=== PATIENT | male | born 1945 | race Caucasian/White ===

== ENCOUNTER 2018-07-24 12:07 | Inpatient (IN) | payer MEDICARE ==
[~2018-07-24] VITALS: Ht 175.3 cm; Wt 100.0 kg
[2018-07-24 13:25] LABS: HEMATOCRIT 48.4 % (39.0-50.0); HEMOGLOBIN 16.7 g/dl (14.0-18.0); IMMATURE GRANULOCYTES 0.1 % (0.0-5.0); MEAN CELL VOLUME 98.8 fL CALC (80.0-100.0); MEAN CORPUSCULAR HGB 34.1 pG CALC (26.0-32.0); MEAN CORPUSCULAR HGB CONC 34.5 g/L CALC (32.0-36.0); NEUT# 6.16 thou/uL (1.82-7.42); RED BLOOD COUNT 4.9 mill/uL (4.70-6.10); RED CELL DISTRI WIDTH 11.9 % (11.5-15.5)
[2018-07-24 13:44] LABS: ALBUMIN 4.1 g/dL (3.2-5.0); ALKALINE PHOSPHATASE 120 u/l (38-126); ANION GAP 18 (6-22 (CALC)); BUN 14 mg/dL (8-23); BUN/CREATININE RATIO 17 (12-20 (CALC)); CARBON DIOXIDE 25 mmol/l (22-30); CHLORIDE 101 mmol/l (95-108); CREATININE 0.8 mg/dL (0.7-1.3); GFR > 60 ML/MIN (>=60 (CALC)); GFR FOR AFR.AMER. > 60 ML/MIN (>=60 (CALC)); POTASSIUM 3.9 mmol/l (3.5-5.1); SGOT/AST 340 u/l (19-48); SODIUM 140 mmol/l (137-146); TOTAL PROTEIN 6.6 g/dL (6.3-8.2)
[2018-07-24 13:49] LABS: AMYLASE 1926 u/l (30-110)
[2018-07-24 14:04] LABS: LIPASE 36651 u/l (23-300)
[2018-07-24 14:11] LABS: URINE BLOOD DIPSTICK NEGATIVE (NEGATIVE); URINE GLUCOSE - DIPSTICK 100 mg/dL (NEGATIVE); URINE KETONE TRACE mg/dL (NEGATIVE); URINE LEUK ESTERASE NEGATIVE (NEGATIVE); URINE NITRITE - DIPSTICK NEGATIVE (Negative); URINE PROTEIN - DIPSTICK TRACE mg/dL (NEG-TRACE)
[2018-07-24 14:12] LABS: URINE BILIRUBIN - DIPSTICK MODERATE (NEGATIVE); URINE COLOR DK. YELLOW
[2018-07-24 14:14] LABS: BARBITURATES NEGATIVE (NEGATIVE); COCAINE NEGATIVE (NEGATIVE); METHADONE NEGATIVE (NEGATIVE); OXCYCODONE NEGATIVE (NEGATIVE); TETRAHYDROCANNABIONOL NEGATIVE (NEGATIVE); TRICYLIC ANTIDEPRESSANTS NEGATIVE (NEGATIVE)
[2018-07-24] MEDS ORDERED: AMLODIPINE5 MG PO (15:09)
[2018-07-24] MEDS ORDERED: HYDROCHLOROT25 MG PO (15:10)
[2018-07-24] MEDS ORDERED: SIMVASTATIN10 MG PO (15:10)
[2018-07-24] MEDS ORDERED: ASPIRIN81 MG PO (15:11)
[2018-07-24] MEDS ORDERED: CLONAZEPAM0.5 MG PO (15:11)
[2018-07-24] MEDS ORDERED: PANTOPRAZOLE SO40 MG PO (15:11)
[2018-07-24 15:51] VITALS: BP 110/66
[2018-07-24 19:34] VITALS: BP 118/77
[2018-07-25] VITALS: BP 123/77
[2018-07-25 04:11] VITALS: BP 118/75
[2018-07-25 04:22] LABS: HEMATOCRIT 43.5 % (39.0-50.0); HEMOGLOBIN 15.2 g/dl (14.0-18.0); IMMATURE GRANULOCYTES 0.5 % (0.0-5.0); MEAN CELL VOLUME 99.5 fL CALC (80.0-100.0); MEAN CORPUSCULAR HGB 34.8 pG CALC (26.0-32.0); MEAN CORPUSCULAR HGB CONC 34.9 g/L CALC (32.0-36.0); NEUT# 15.03 thou/uL (1.82-7.42); RED BLOOD COUNT 4.37 mill/uL (4.70-6.10); RED CELL DISTRI WIDTH 12.2 % (11.5-15.5)
[2018-07-25 04:42] LABS: ALKALINE PHOSPHATASE 104 u/l (38-126); AMYLASE 878 u/l (30-110); ANION GAP 13 (6-22 (CALC)); BILIRUBIN, TOTAL 4.1 mg/dL (0.0-1.4); BUN 11 mg/dL (8-23); BUN/CREATININE RATIO 16 (12-20 (CALC)); CARBON DIOXIDE 27 mmol/l (22-30); CHLORIDE 104 mmol/l (95-108); CREATININE 0.7 mg/dL (0.7-1.3); GFR > 60 ML/MIN (>=60 (CALC)); GFR FOR AFR.AMER. > 60 ML/MIN (>=60 (CALC)); MAGNESIUM 1.7 mg/dL (1.6-2.3); POTASSIUM 3.7 mmol/l (3.5-5.1); SGOT/AST 214 u/l (19-48); SODIUM 141 mmol/l (137-146); TOTAL PROTEIN 5.5 g/dL (6.3-8.2)
[2018-07-25 04:49] LABS: ALBUMIN 3.2 g/dL (3.2-5.0)
[2018-07-25 05:03] LABS: LIPASE 8873 u/l (23-300)
[2018-07-25 08:00] VITALS: BP 123/65
[2018-07-25 11:04] VITALS: BP 125/73
[2018-07-25 15:27] VITALS: BP 144/80
[2018-07-25 18:56] VITALS: BP 130/74
[2018-07-26] VITALS (7 sets, daily range): BP systolic 133–152; BP diastolic 71–84
[2018-07-26 05:32] LABS: HEMATOCRIT 43.7 % (39.0-50.0); HEMOGLOBIN 15.3 g/dl (14.0-18.0); IMMATURE GRANULOCYTES 0.6 % (0.0-5.0); MEAN CELL VOLUME 98.4 fL CALC (80.0-100.0); MEAN CORPUSCULAR HGB 34.5 pG CALC (26.0-32.0); NEUT# 10.82 thou/uL (1.82-7.42); RED BLOOD COUNT 4.44 mill/uL (4.70-6.10); RED CELL DISTRI WIDTH 12.2 % (11.5-15.5)
[2018-07-26 05:42] LABS: ALBUMIN 3.1 g/dL (3.2-5.0); ALKALINE PHOSPHATASE 111 u/l (38-126); ANION GAP 14 (6-22 (CALC)); BILIRUBIN, TOTAL 2.7 mg/dL (0.0-1.4); BUN 12 mg/dL (8-23); BUN/CREATININE RATIO 20 (12-20 (CALC)); CARBON DIOXIDE 25 mmol/l (22-30); CHLORIDE 101 mmol/l (95-108); CREATININE 0.6 mg/dL (0.7-1.3); GFR > 60 ML/MIN (>=60 (CALC)); GFR FOR AFR.AMER. > 60 ML/MIN (>=60 (CALC)); POTASSIUM 3.2 mmol/l (3.5-5.1); SGOT/AST 77 u/l (19-48); SODIUM 137 mmol/l (137-146); TOTAL PROTEIN 5.5 g/dL (6.3-8.2)
[2018-07-26 05:49] LABS: LIPASE 1959 u/l (23-300)
[2018-07-26 16:21] LABS: URINE BLOOD DIPSTICK TRACE-LYSED (NEGATIVE); URINE COLOR YELLOW; URINE GLUCOSE - DIPSTICK NEGATIVE (NEGATIVE); URINE KETONE >=80 mg/dL (NEGATIVE); URINE LEUK ESTERASE NEGATIVE (Negative); URINE NITRITE - DIPSTICK NEGATIVE (Negative); URINE PROTEIN - DIPSTICK 30 mg/dL (NEG-TRACE); URINE SPECIFIC GRAVITY 1.015
[2018-07-26 16:26] LABS: URINE BILIRUBIN - DIPSTICK SMALL (NEGATIVE); URINE CLARITY CLEAR
[2018-07-26 16:32] LABS: ALBUMIN 3.2 g/dL (3.2-5.0); ALKALINE PHOSPHATASE 145 u/l (38-126); BILIRUBIN, TOTAL 3.6 mg/dL (0.0-1.4); BUN 13 mg/dL (8-23); BUN/CREATININE RATIO 21 (12-20 (CALC)); CARBON DIOXIDE 23 mmol/l (22-30); CHLORIDE 103 mmol/l (95-108); CREATININE 0.6 mg/dL (0.7-1.3); GFR > 60 ML/MIN (>=60 (CALC)); GFR FOR AFR.AMER. > 60 ML/MIN (>=60 (CALC)); SGOT/AST 93 u/l (19-48); SODIUM 135 mmol/l (137-146); TOTAL PROTEIN 5.8 g/dL (6.3-8.2)
[2018-07-26 16:34] LABS: ANION GAP 13 (6-22 (CALC))
[2018-07-26 16:39] LABS: URINE SQUAMOUS EPITHELIAL CELL FEW EPI/hpf (0-FEW)
[2018-07-26 16:43] LABS: HEMATOCRIT 43.8 % (39.0-50.0); HEMOGLOBIN 15.3 g/dl (14.0-18.0); IMMATURE GRANULOCYTES 0.6 % (0.0-5.0); MEAN CELL VOLUME 98.2 fL CALC (80.0-100.0); MEAN CORPUSCULAR HGB 34.3 pG CALC (26.0-32.0); MEAN CORPUSCULAR HGB CONC 34.9 g/L CALC (32.0-36.0); NEUT# 7.17 thou/uL (1.82-7.42); RED BLOOD COUNT 4.46 mill/uL (4.70-6.10); RED CELL DISTRI WIDTH 12.1 % (11.5-15.5)
[2018-07-27 04:05] VITALS: BP 147/89
[2018-07-27 04:43] LABS: HEMATOCRIT 42.9 % (39.0-50.0); HEMOGLOBIN 14.9 g/dl (14.0-18.0); IMMATURE GRANULOCYTES 0.6 % (0.0-5.0); MEAN CELL VOLUME 97.7 fL CALC (80.0-100.0); MEAN CORPUSCULAR HGB 33.9 pG CALC (26.0-32.0); MEAN CORPUSCULAR HGB CONC 34.7 g/L CALC (32.0-36.0); NEUT# 8.22 thou/uL (1.82-7.42); RED BLOOD COUNT 4.39 mill/uL (4.70-6.10); RED CELL DISTRI WIDTH 12.2 % (11.5-15.5)
[2018-07-27 04:59] LABS: ALKALINE PHOSPHATASE 152 u/l (38-126); BILIRUBIN, TOTAL 5.2 mg/dL (0.0-1.4); BUN 10 mg/dL (8-23); BUN/CREATININE RATIO 16 (12-20 (CALC)); CARBON DIOXIDE 25 mmol/l (22-30); CHLORIDE 104 mmol/l (95-108); CREATININE 0.6 mg/dL (0.7-1.3); GFR > 60 ML/MIN (>=60 (CALC)); GFR FOR AFR.AMER. > 60 ML/MIN (>=60 (CALC)); LIPASE 761 u/l (23-300); SGOT/AST 141 u/l (19-48); SODIUM 139 mmol/l (137-146); TOTAL PROTEIN 5.6 g/dL (6.3-8.2)
[2018-07-27 05:01] LABS: ANION GAP 14 (6-22 (CALC)); POTASSIUM 3.6 mmol/l (3.5-5.1)
[2018-07-27 09:49] VITALS: BP 153/82
[2018-07-27 11:37] VITALS: BP 123/69
[2018-07-27 16:26] VITALS: BP 133/75
[2018-07-27 19:15] VITALS: BP 153/78
[2018-07-28 00:27] VITALS: BP 140/69
[2018-07-28 04:46] VITALS: BP 143/77
[2018-07-28 05:17] LABS: HEMATOCRIT 42.2 % (39.0-50.0); HEMOGLOBIN 14.9 g/dl (14.0-18.0); IMMATURE GRANULOCYTES 0.9 % (0.0-5.0); MEAN CELL VOLUME 97.2 fL CALC (80.0-100.0); MEAN CORPUSCULAR HGB 34.3 pG CALC (26.0-32.0); MEAN CORPUSCULAR HGB CONC 35.3 g/L CALC (32.0-36.0); NEUT# 6.95 thou/uL (1.82-7.42); RED BLOOD COUNT 4.34 mill/uL (4.70-6.10); RED CELL DISTRI WIDTH 12.3 % (11.5-15.5)
[2018-07-28 05:48] LABS: ALKALINE PHOSPHATASE 150 u/l (38-126); AMYLASE 61 u/l (30-110); ANION GAP 13 (6-22 (CALC)); BILIRUBIN, TOTAL 2.3 mg/dL (0.0-1.4); BUN 8 mg/dL (8-23); BUN/CREATININE RATIO 14 (12-20 (CALC)); CALCULATED LDLCHOLESTEROL 95 mg/dL (62-129 (CALC)); CARBON DIOXIDE 24 mmol/l (22-30); CHLORIDE 104 mmol/l (95-108); CHOLESTEROL HDL RATIO 7.6 (<4.4 (CALC)); CREATININE 0.6 mg/dL (0.7-1.3); GFR > 60 ML/MIN (>=60 (CALC)); GFR FOR AFR.AMER. > 60 ML/MIN (>=60 (CALC)); HDL CHOLESTEROL 19 mg/dL (>=40); LIPASE 584 u/l (23-300); POTASSIUM 3.2 mmol/l (3.5-5.1); SGOT/AST 124 u/l (19-48); SODIUM 138 mmol/l (137-146); TOTAL CHOLESTEROL 145 mg/dl (0-199); TOTAL PROTEIN 5.4 g/dL (6.3-8.2); TOTAL TRIGLYCERIDES 152 mg/dl (30-149); VLDL CHOLESTROL 30 mg/dl (0-38 (CALC))
[2018-07-28 09:12] VITALS: BP 143/80
[2018-07-28 11:20] VITALS: BP 145/83
[2018-07-28 14:59] VITALS: BP 128/76
[2018-07-28 19:30] VITALS: BP 137/72
[2018-07-29 00:29] VITALS: BP 125/64
[2018-07-29 03:38] VITALS: BP 133/79
[2018-07-29 05:13] LABS: HEMATOCRIT 41.3 % (39.0-50.0); HEMOGLOBIN 14.7 g/dl (14.0-18.0); IMMATURE GRANULOCYTES 0.8 % (0.0-5.0); MEAN CELL VOLUME 96.9 fL CALC (80.0-100.0); MEAN CORPUSCULAR HGB 34.5 pG CALC (26.0-32.0); MEAN CORPUSCULAR HGB CONC 35.6 g/L CALC (32.0-36.0); NEUT# 6.91 thou/uL (1.82-7.42); RED BLOOD COUNT 4.26 mill/uL (4.70-6.10); RED CELL DISTRI WIDTH 12.5 % (11.5-15.5)
[2018-07-29 05:42] LABS: ALBUMIN 2.8 g/dL (3.2-5.0); ALKALINE PHOSPHATASE 131 u/l (38-126); AMYLASE 89 u/l (30-110); ANION GAP 13 (6-22 (CALC)); BILIRUBIN, TOTAL 1.5 mg/dL (0.0-1.4); BUN 8 mg/dL (8-23); BUN/CREATININE RATIO 11 (12-20 (CALC)); CARBON DIOXIDE 24 mmol/l (22-30); CHLORIDE 104 mmol/l (95-108); CREATININE 0.7 mg/dL (0.7-1.3); GFR > 60 ML/MIN (>=60 (CALC)); GFR FOR AFR.AMER. > 60 ML/MIN (>=60 (CALC)); LIPASE 651 u/l (23-300); MAGNESIUM 1.9 mg/dL (1.6-2.3); POTASSIUM 3.1 mmol/l (3.5-5.1); SGOT/AST 91 u/l (19-48); SODIUM 138 mmol/l (137-146); TOTAL PROTEIN 5.1 g/dL (6.3-8.2)
[2018-07-29 07:48] VITALS: BP 92/62
[2018-07-29 13:00] VITALS: BP 149/82
== END 2018-07-29 15:24 | DRG 439 ==
LOC: ED 12:07 → ED-I 14:43 → ED 15:03 → MS2 15:04
PROVIDERS: Emergency Medicine; Internal Medicine; Nurse Practitioner Family; ADMIT Internal Medicine Nephrology; ATTEND Internal Medicine Nephrology
DX: K85.21 Alcohol induced acute pancreatitis with uninfected necrosis (principal); E46 Unspecified protein-calorie malnutrition; F10.239 Alcohol dependence with withdrawal, unspecified; K70.0 Alcoholic fatty liver; I10 Essential (primary) hypertension; J44.9 Chronic obstructive pulmonary disease, unspecified; K21.9 Gastro-esophageal reflux disease without esophagitis; G89.29 Other chronic pain; M54.9 Dorsalgia, unspecified; Z68.32 Body mass index [BMI] 32.0-32.9, adult
CPT/HCPCS: J1650; J2060; S0164

== ENCOUNTER 2019-05-06 06:36 | Observation (INO) | payer MEDICARE ==
[~2019-05-06] VITALS: Ht 175.3 cm; Wt 96.8 kg
[~2019-05-06 06:36] MED LIST: AMLODIPINE5 MG PO; ASPIRIN81 MG PO; HYDROCHLOROT25 MG PO; KLONOPIN0.5 MG PO; PANTOPRAZOLE SO40 MG PO; SIMVASTATIN10 MG PO
[2019-05-06 07:13] LABS: HEMOGLOBIN 16.3 g/dl (14.0-18.0); IMMATURE GRANULOCYTES 0.3 % (0.0-5.0); MEAN CORPUSCULAR HGB 32.3 pG CALC (26.0-32.0); NEUT# 12.77 thou/uL (1.82-7.42); RED BLOOD COUNT 5.04 mill/uL (4.70-6.10); RED CELL DISTRI WIDTH 13.3 % (11.5-15.5)
[2019-05-06 07:27] LABS: HEMATOCRIT 47.9 % (39.0-50.0)
[2019-05-06 07:33] LABS: ALKALINE PHOSPHATASE 94 u/l (38-126); BUN 17 mg/dL (8-23); BUN/CREATININE RATIO 24 (12-20 (CALC)); CARBON DIOXIDE 26 mmol/l (22-30); CHLORIDE 106 mmol/l (95-108); CREATININE 0.7 mg/dL (0.7-1.3); GFR > 60 ML/MIN (>=60 (CALC)); GFR FOR AFR.AMER. > 60 ML/MIN (>=60 (CALC)); SGOT/AST 26 u/l (19-48); SODIUM 141 mmol/l (137-146)
[2019-05-06] MEDS ORDERED: KAPSPARGO SPRIN25 MG PO (07:39)
[2019-05-06] MEDS ORDERED: AVAPRO75 MG PO (07:40)
[2019-05-06] MEDS ORDERED: PRASUGREL10 MG PO (07:41)
[2019-05-06 07:42] LABS: ALBUMIN 4.2 g/dL (3.2-5.0); ANION GAP 14 (6-22 (CALC)); POTASSIUM 4.8 mmol/l (3.5-5.1); TOTAL PROTEIN 7.1 g/dL (6.3-8.2)
[2019-05-06] MEDS ORDERED: METOPROL TAR25 MG PO (07:44)
[2019-05-06] MEDS ORDERED: BACLOFEN10 MG PO (07:45)
[2019-05-06 08:02] LABS: URINE BILIRUBIN - DIPSTICK NEGATIVE (NEGATIVE); URINE BLOOD DIPSTICK TRACE-LYSED (NEGATIVE); URINE COLOR YELLOW; URINE GLUCOSE - DIPSTICK NEGATIVE (NEGATIVE); URINE KETONE NEGATIVE (NEGATIVE); URINE LEUK ESTERASE NEGATIVE (NEGATIVE); URINE NITRITE - DIPSTICK NEGATIVE (Negative); URINE PROTEIN - DIPSTICK NEGATIVE (NEG-TRACE); URINE UROBILINOGEN - DIPSTICK 0.2 E.U./dL (0.2)
[2019-05-06 13:40] VITALS: BP 102/60
[2019-05-06 15:30] VITALS: BP 108/55
[2019-05-06 17:43] LABS: AMYLASE 84 u/l (30-110); LIPASE 61 u/l (23-300)
[2019-05-06 19:10] VITALS: BP 131/74
[2019-05-06 23:37] VITALS: BP 124/59
[2019-05-07 04:05] VITALS: BP 136/74
[2019-05-07 05:30] LABS: IMMATURE GRANULOCYTES 0.4 % (0.0-5.0); MEAN CELL VOLUME 95.7 fL CALC (80.0-100.0); MEAN CORPUSCULAR HGB 32.1 pG CALC (26.0-32.0); MEAN CORPUSCULAR HGB CONC 33.6 g/L CALC (32.0-36.0); NEUT# 9.43 thou/uL (1.82-7.42); RED BLOOD COUNT 4.2 mill/uL (4.70-6.10); RED CELL DISTRI WIDTH 13.7 % (11.5-15.5)
[2019-05-07 05:31] LABS: HEMATOCRIT 40.2 % (39.0-50.0); HEMOGLOBIN 13.5 g/dl (14.0-18.0)
[2019-05-07 05:36] LABS: ANION GAP 8 (6-22 (CALC)); BUN 14 mg/dL (8-23); BUN/CREATININE RATIO 19 (12-20 (CALC)); CARBON DIOXIDE 25 mmol/l (22-30); CHLORIDE 110 mmol/l (95-108); CREATININE 0.7 mg/dL (0.7-1.3); GFR > 60 ML/MIN (>=60 (CALC)); GFR FOR AFR.AMER. > 60 ML/MIN (>=60 (CALC)); MAGNESIUM 1.9 mg/dL (1.6-2.3); SODIUM 139 mmol/l (137-146)
[2019-05-07 07:33] VITALS: BP 107/64
[2019-05-07 11:23] VITALS: BP 128/76
[2019-05-07] MEDS ORDERED: AMOX/K CLAV875 M1 PO (12:37)
== END 2019-05-07 13:48 | disposition home or self-care (01) ==
LOC: ED 06:36 → ED-I 08:03 → ED 08:20 → MS2 08:21 → ED-I 08:21 → MS2 13:20
PROVIDERS: Family Medicine; Nurse Practitioner Family; ADMIT Internal Medicine; ATTEND Internal Medicine
DX: R50.9 Fever, unspecified (principal); D72.829 Elevated white blood cell count, unspecified; E87.2 Acidosis; I10 Essential (primary) hypertension; I25.10 Atherosclerotic heart disease of native coronary artery without angina pectoris; K21.9 Gastro-esophageal reflux disease without esophagitis; Z95.5 Presence of coronary angioplasty implant and graft; Z87.891 Personal history of nicotine dependence
CPT/HCPCS: G0378; J1650

== ENCOUNTER 2019-06-28 08:43 | Observation (INO) | payer MEDICARE ==
[~2019-06-28] VITALS: Ht 177.8 cm; Wt 97.2 kg
[~2019-06-28 08:43] MED LIST changes: +AMOX/K CLAV875 M1 PO; +AVAPRO75 MG PO; +BACLOFEN10 MG PO; +KAPSPARGO SPRIN25 MG PO; +METOPROL TAR25 MG PO; +PRASUGREL10 MG PO
[2019-06-28 09:39] LABS: HEMATOCRIT 45.7 % (39.0-50.0); IMMATURE GRANULOCYTES 0.3 % (0.0-5.0); MEAN CELL VOLUME 94.8 fL CALC (80.0-100.0); MEAN CORPUSCULAR HGB 33.4 pG CALC (26.0-32.0); MEAN CORPUSCULAR HGB CONC 35.2 g/L CALC (32.0-36.0); NEUT# 15.21 thou/uL (1.82-7.42); RED BLOOD COUNT 4.82 mill/uL (4.70-6.10)
[2019-06-28 09:44] LABS: HEMOGLOBIN 16.1 g/dl (14.0-18.0)
[2019-06-28 09:56] LABS: ALBUMIN 4.1 g/dL (3.2-5.0); ALKALINE PHOSPHATASE 82 u/l (38-126); ANION GAP 16 (6-22 (CALC)); BILIRUBIN, TOTAL 1.1 mg/dL (0.0-1.4); BUN 16 mg/dL (8-23); BUN/CREATININE RATIO 22 (12-20 (CALC)); CARBON DIOXIDE 21 mmol/l (22-30); CHLORIDE 107 mmol/l (95-108); CREATININE 0.7 mg/dL (0.7-1.3); GFR > 60 ML/MIN (>=60 (CALC)); GFR FOR AFR.AMER. > 60 ML/MIN (>=60 (CALC)); SGOT/AST 34 u/l (19-48); SODIUM 140 mmol/l (137-146); TOTAL PROTEIN 7.2 g/dL (6.3-8.2)
[2019-06-28] MEDS ORDERED: AVAPRO75 MG PO (10:50)
[2019-06-28 11:29] LABS: URINE BILIRUBIN - DIPSTICK NEGATIVE (NEGATIVE); URINE BLOOD DIPSTICK TRACE-INTACT (NEGATIVE); URINE COLOR YELLOW; URINE GLUCOSE - DIPSTICK NEGATIVE (NEGATIVE); URINE KETONE NEGATIVE (NEGATIVE); URINE LEUK ESTERASE NEGATIVE (NEGATIVE); URINE NITRITE - DIPSTICK NEGATIVE (Negative); URINE PH 5.5 (4.5-8.0); URINE PROTEIN - DIPSTICK NEGATIVE (NEG-TRACE); URINE UROBILINOGEN - DIPSTICK 0.2 E.U./dL (0.2)
[2019-06-28 14:45] VITALS: BP 96/50
[2019-06-28 15:47] VITALS: BP 118/53
[2019-06-28 18:36] VITALS: BP 97/56
[2019-06-29 00:24] VITALS: BP 101/61
[2019-06-29 05:03] VITALS: BP 118/68
[2019-06-29 05:28] LABS: HEMOGLOBIN 14.5 g/dl (14.0-18.0); MEAN CELL VOLUME 96.8 fL CALC (80.0-100.0); MEAN CORPUSCULAR HGB 33.4 pG CALC (26.0-32.0); MEAN CORPUSCULAR HGB CONC 34.5 g/L CALC (32.0-36.0); RED BLOOD COUNT 4.34 mill/uL (4.70-6.10); RED CELL DISTRI WIDTH 13.2 % (11.5-15.5)
[2019-06-29 05:55] LABS: ANION GAP 12 (6-22 (CALC)); BUN 14 mg/dL (8-23); BUN/CREATININE RATIO 22 (12-20 (CALC)); CARBON DIOXIDE 21 mmol/l (22-30); CHLORIDE 110 mmol/l (95-108); CREATININE 0.7 mg/dL (0.7-1.3); GFR > 60 ML/MIN (>=60 (CALC)); GFR FOR AFR.AMER. > 60 ML/MIN (>=60 (CALC)); POTASSIUM 3.9 mmol/l (3.5-5.1); SODIUM 139 mmol/l (137-146)
[2019-06-29 09:20] VITALS: BP 129/78
[2019-06-29 10:58] VITALS: BP 134/75
[2019-06-29 15:21] VITALS: BP 145/76
[2019-06-29] MEDS ORDERED: ZITHROMAX500 MG PO (18:32)
[2019-06-29] MEDS ORDERED: AMOX/K CLAV875 M1 PO (18:32)
== END 2019-06-29 19:35 | disposition home or self-care (01) ==
LOC: ED 08:43 → ED-I 10:26 → ED 10:40 → ED-I 10:41 → MS2 10:41
PROVIDERS: Family Medicine; ADMIT Internal Medicine; ATTEND Internal Medicine
DX: J11.1 Influenza due to unidentified influenza virus with other respiratory manifestations (principal); E87.2 Acidosis; I10 Essential (primary) hypertension; K21.9 Gastro-esophageal reflux disease without esophagitis; Z87.891 Personal history of nicotine dependence; Z95.5 Presence of coronary angioplasty implant and graft; R07.9 Chest pain, unspecified
CPT/HCPCS: G0378; J1650